=== PATIENT | male | born 1960 | race Caucasian/White ===

== ENCOUNTER 2024-03-09 03:26 | Emergency (ER) | payer MEDICARE, MEDICAID ==
[~2024-03-09] VITALS: Ht 170.2 cm; Wt 86.0 kg
[~2024-03-09 03:26] MED LIST: APIX2.5T MT; ASPI-1406 PO; COR3 PO; FOLI1TAB87 PO; SEVE800T8 PO
[2024-03-09 03:32] VITALS: BP 115/72; PULSE 95; RESP 18; TEMP 36.7; O2SAT 98
[2024-03-09 05:04] LABS: BASOPHILS % 0.7 % (0.0-2.0); CHLORIDE 102 mEq/L (98-107); EOSINOPHILS % 6.2 % (0.0-5.0); HEMATOCRIT. 29.1 % (42.0-52.0); HEMOGLOBIN. 9.9 g/dL (14.0-18.0); LYMPHOCYTES % 11.6 % (20.0-50.0); MEAN CORPUSCULAR HEMOGLOBIN 32.2 pg (28.0-32.0); MEAN CORPUSCULAR HGB CONC 34.1 g/dL (31.0-37.0); MEAN CORPUSCULAR VOLUME 94.4 fL (80.0-94.0); MEAN PLATELET VOLUME 8.4 fl (7.4-10.4); MONOCYTES % 9.5 % (2.0-8.0); PLATELET 258 x1000/uL (130-400); POTASSIUM 4.9 mEq/L (3.5-5.1); RED BLOOD CELL COUNT 3.08 mill/uL (4.7-6.1); RED CELL DISTRIBUTION WIDTH 15.9 % (11.6-14.6); SODIUM 139 mEq/L (136-145); WHITE BLOOD COUNT 6.6 x1000/uL (4.5-11.0)
[2024-03-09 05:05] LABS: CARBON DIOXIDE 29 mEq/L (21-32)
[2024-03-09 05:06] LABS: CALCIUM 9.4 mg/dL (8.7-10.4)
[2024-03-09 05:11] LABS: GLUCOSE 104 mg/dL (70-105); UREA NITROGEN BLOOD 53 mg/dL (9-23)
[2024-03-09 05:12] LABS: TROPONIN I HIGH SENSITIVITY 41 ng/L (3.0-53)
== END 2024-03-09 06:47 | disposition home or self-care (01) ==
LOC: ER 03:26
DX: I12.0 Hypertensive chronic kidney disease with stage 5 chronic kidney disease or end stage renal disease (principal); E11.22 Type 2 diabetes mellitus with diabetic chronic kidney disease; N18.6 End stage renal disease; Z20.822 Contact with and (suspected) exposure to COVID-19; Z88.8 Allergy status to other drugs, medicaments and biological substances; Z79.82 Long term (current) use of aspirin; Z79.899 Other long term (current) drug therapy
CPT/HCPCS: 36415; 71045; 80048; 83880; 84484; 85025; 87426; 87804; 93005; 99285